=== PATIENT | female | born 1965 | race Asian ===

== ENCOUNTER 2024-10-19 06:32 | Day surgery (SDC) | payer OTHER, SELFPAY ==
--- NOTE | 2024-10-19 | PATH_ITS ---
[facility] Accession Number: [id number] No. of containers..05 Tissue . 01 Material submitted: . PART A: duodenum - DUODENUM PART B: gastrointestinal site - ANTRUM PART C: gastrointestinal site - GASTRIC POLYPS PART D: colon - RANDOM COLON PART E: rectosigmoid junction - RECTAL SIGMOID POLYP . 01 Diagnosis: A. DUODENUM, BIOPSY: Duodenal mucosa with no diagnostic abnormality. Negative for active inflammation, features of sprue, dysplasia, or malignancy. . B. ANTRUM, BIOPSY: Gastric mucosa with minimal chronic nonspecific inflammation. No Helicobacter pylori organisms identified on H/E slide. No intestinal metaplasia, dysplasia, or malignancy. . C. GASTRIC POLYPS: Fundic gland polyps. No Helicobacter pylori organisms identified on H/E slide. No intestinal metaplasia, dysplasia, or malignancy. . D. RANDOM COLON, BIOPSY: Colonic mucosa with no diagnostic abnormality. Negative for active, chronic, and microscopic colitis. Negative for dysplasia and malignancy. . E. RECTOSIGMOID JUNCTION POLYP, BIOPSY: Hyperplastic polyp. [facility] 10/21/2024 1403 Local . 01 Electronically signed: . Chelsea Foster MD, Pathologist NPI- [id number] . 01 Gross description: . A. Received in formalin with two patient identifiers and duodenum biopsy, are four reynolds soft tissue fragments, 0.3 to 0.5 cm in greatest dimension, submitted in A1. B. Received in formalin with two patient identifiers and antrum biopsy, is a single reynolds soft tissue fragment, 0.5 cm in greatest dimension, submitted in B1. C. Received in formalin with two patient identifiers and gastric polyps, are multiple reynolds soft tissue fragments aggregating to 0.8 x 0.5 x 0.2 cm. Filtered and submitted in C1. D. Received in formalin with two patient identifiers and random biopsy, is a single reynolds soft tissue fragments, 0.4 cm in greatest dimension, submitted in D1. E. Received in formalin with two patient identifiers and rectosigmoid polyp, are three reynolds soft tissue fragments, 0.3 to 0.4 cm in greatest dimension, submitted in E1. ([id number]) /MRV 10/20/2024 1936 Local . 01 Pathologist provided ICD-10: K29.30, D13.1, D12.7 . 01 CPT . 769260, 043049, 371788, 086842, [id number] Specimen Comment: A courtesy copy of this report has been sent to [phone] Performed at: [address] [id number] MD Ben Ortiz MD Phone: [phone]
[2024-10-19 07:18] VITALS: BP 102/68; PULSE 80; RESP 12; TEMP 36.6; O2SAT 99
--- NOTE | 2024-10-19 08:15 | PM.HP.1 ---
History of Present Illness History of Present Illness Date Patient Seen: 10/19/24 Time Patient Seen: 08:15 Chief complaint: SDC Narrative: 59-year-old female here for refractory reflux symptoms. She has diarrhea and a personal history of colon polyps. I reviewed the recent clinic note by . no changes. The patient indicates that she does take her PPI right before bed. I explained to her how this is the most suboptimal time of day to take that medication. [facility] Social History Smoking Status: Never smoker alcohol intake: current Meds Home Medications and Allergies Home Medications Medication Instructions Recorded Confirmed Type omeprazole 20 mg capsule,delayed 20 mg PO DAILY 10/19/24 10/19/24 History release primidone 50 mg tablet 50 mg PO BID 10/19/24 10/19/24 History propranolol 20 mg PO PRN PRN tremors 10/19/24 10/19/24 History Allergies Allergy/AdvReac Type Severity Reaction Status Date / Time erythromycin base Allergy Hives Verified 10/19/24 07:11 hydrocodone AdvReac Vomiting Verified 10/19/24 07:11 Review of Systems Review of Systems ROS: Yes All systems reviewed with the patient and are negative except as otherwise documented Exam Vital Signs (past 8 hours): - 10/19/24 07:18 Temperature 97.8 F Pulse Rate 80 Respiratory Rate 12 Blood Pressure 102/68 Pulse Oximetry 99 Oxygen Delivery Method Room Air Oxygen Delivery Method Room Air Const General: cooperative HENMT Head: normal to inspection Eyes General: appearance normal, both eyes and all related structures Neck Neck: normal visual inspection Chest Chest: normal inspection of the chest Resp Effort & Inspection: normal respiratory effort Cardio Rate: regular rate GI Inspection: normal to inspection Skin General: no rashes or lesions noted Neuro General: patient alert and patient awake Extrem General: normal to inspection and no pedal edema Psych Appearance: grossly normal Assessment & Plan Assessment & Plan narrative: 59-year-old female with refractory reflux symptoms, diarrhea, history of colon polyps. EGD and colonoscopy are pursued today. Time-Based Coding :: [TOTAL MINUTES] spent with patient and on the chart (including review of chart, obtaining history, exam, reviewing outside data, placing orders, documenting exam and treatment plan, and counseling patient) on [DATE].
--- NOTE | 2024-10-19 08:16 | PM.PREOP ---
Pre-operative Note Interval Note History & Physical reviewed/Exam performed by Physician: Yes Changes to H&P: No ASA Class (for procedural sedation): II
--- NOTE | 2024-10-19 09:11 | PM.OP.EC ---
Operative Date/Time/Diagnoses Date of procedure: 10/19/24 Time of procedure: 09:12 Pre-op diagnosis: Refractory GERD, diarrhea, history of colon polyps Post-op diagnosis: same Procedure & Clinicians Study performed: EGD with biopsies and colonoscopy with biopsies and cold snare polypectomy Same procedure as scheduled: Yes Indications: Refractory GERD, diarrhea, personal history of colon polyps Surgeon: Baldev Potts Procedure Notes SCOAP/Timeout: Done Procedure in detail: After the risks and benefits were explained, written and verbal informed consent was obtained. The patient was brought into the procedure room and placed into the left lateral decubitus position. Please see anesthesia notes for sedation details. The scope was introduced into the mouth through the bite block and advanced under direct visualization to the 2nd portion of the duodenum. The scope was slowly withdrawn carefully examining the mucosa for any defects or lesions. Retroflexed views were accomplished in the stomach. The stomach was decompressed, the scope was then removed from the patient who tolerated the procedure well. The patient was then turned around. A digital rectal examination was accomplished. The scope was introduced into the rectum and advanced to the cecum as identified by the appendiceal orifice and ileocecal valve. The scope was slowly withdrawn to carefully examine the mucosa for any defects or lesions. Multiple direct views were made through the dentate line for exclusion of pathology. The colon was decompressed the scope removed from the patient who tolerated the procedure well. Pediatric colonoscope Bowel prep adequate Scope withdrawal time: 15 minutes Sedation minutes: 49 Complications: none Impression: 1. Duodenal: This was normal from the bulb through to the 2nd portion. D2 biopsies were taken for exclusion of sprue. 2. Stomach: No ulcers. No outlet obstruction no mass lesions. Mild gastropathy was appreciated in the antrum and biopsies were taken for exclusion of H pylori. There were a few scattered diminutive polyps in the body and fundus. A couple of these were sampled for histopathologic analysis. Retroflexed views of the LES disclosed a Hill valve grade 3 hiatal hernia. 4. Esophagus: The squamocolumnar junction correlated with the top of the gastric folds. GEJ was at approximately 36 cm from the incisors. Small sliding hiatal hernia was noted. The patient had evidence of LA grade a erosive esophagitis. There was a benign-appearing inlet patch just below the UES. 5. Terminal ileum: This interrogated and was visually normal. 6. Colon: No evidence of macroscopic colitis throughout. Random colon biopsies were taken for exclusion of microscopic colitis. There were some scattered scant diverticula in the sigmoid. Couple of small 3-4 mm sessile polyps were removed with cold snare in the region of the rectosigmoid no additional significant pathology was appreciated throughout. The patient had a moderately tortuous sigmoid colon. Endoscopic diagnosis 1. Small sliding hiatal hernia 2. LA grade a erosive esophagitis 3. Mild gastropathy 4. Small gastric polyps 5. Diverticulosis 6. Diminutive rectosigmoid polyps 7. Tortuous sigmoid Post-procedure Plan for aftercare: 1. Await histology. 2. The patient is encouraged to revise how she takes her omeprazole. This should be taken 30-60 minutes before the 1st or last meal of the day on an empty stomach. 3. The timing of surveillance colonoscopy will be contingent on polyp results but will likely be recommended for 7 years time. 4. Follow up GI clinic Disposition: PACU
[2024-10-19 09:13] VITALS: BP 79/45; PULSE 78; RESP 12; TEMP 36.2; O2SAT 96
[2024-10-19 09:14] VITALS: BP 79/45
[2024-10-19 09:18] VITALS: BP 89/56; PULSE 81; RESP 16; O2SAT 99
[2024-10-19 09:24] VITALS: BP 95/64; PULSE 97; RESP 13; TEMP 36.6; O2SAT 99
[2024-10-19 09:40] VITALS: BP 97/75; PULSE 75; RESP 16; O2SAT 98
== END 2024-10-19 09:49 | disposition home or self-care (01) ==
PROVIDERS: Internal Medicine Gastroenterology; PCP Family Medicine; Referring Provider Internal Medicine Gastroenterology; Visit Provider Internal Medicine Gastroenterology
PROC: 0DJ08ZZ Inspection of Upper Intestinal Tract, Via Natural or Artificial Opening Endoscopic (ICD-10-PCS; CPT 43235; principal; 2024-10-19 08:00)
PROC: 0DJD8ZZ Inspection of Lower Intestinal Tract, Via Natural or Artificial Opening Endoscopic (ICD-10-PCS; CPT 45378; 2024-10-19 08:00)
DX: R19.7 Diarrhea, unspecified (principal); Z86.0100 Personal history of colon polyps, unspecified; K21.9 Gastro-esophageal reflux disease without esophagitis; K57.30 Diverticulosis of large intestine without perforation or abscess without bleeding; K31.7 Polyp of stomach and duodenum; K31.9 Disease of stomach and duodenum, unspecified; K44.9 Diaphragmatic hernia without obstruction or gangrene; K20.90 Esophagitis, unspecified without bleeding; K29.50 Unspecified chronic gastritis without bleeding; K63.5 Polyp of colon
CPT/HCPCS: 45385; 45380; 43239; J2704